=== PATIENT | female | born 1990 ===

== ENCOUNTER 2017-07-07 00:38 | Emergency (ER) | payer MEDICAID ==
[2017-07-07 01:09] VITALS: BMI 27.4
[2017-07-07] MEDS ORDERED: Lactated Ringer's 1,000 ML IV SCH (01:15)
--- NOTE | 2017-07-07 01:16 | OBHP ---
Datetime: 07/07/2017 01:14 IP Adm Impression: Term, intrauterine Admit Comment, IP Provider: at 38+weeks came with c/o started in evening, irrg, no vnb,lof+fm obhx 1 x c/s pmh de med pnv all nkda psh de soch de ve closed/th/-3 a/p at 38+weeks previous c/s/ctxs npo/ivf labs cont jermaine and efm cont close obsvation Pelvic Type - PN: Adequate Extremities - PN: Normal Abdomen - PN: Normal Back - PN: Normal Breast - PN: Normal Lungs - PN: Normal Heart - PN: Normal Thyroid - PN: Normal Neurologic - PN: Normal HEENT - PN: Normal General - PN: Normal FHR - Baseline A Provider: 150 Contraction Comments Provider: q1-5 EGA AdmitDate IP: 38.5 Vital Signs Provider: Reviewed; Within Normal Limits IP Chief Complaint: Uterine contractions NICHD Variability Prov Fetus A: Moderate 6-25bpm NICHD Accel Fetus A IP Provider: [id number] FHR Category Provider Fetus A: Category I Dilatation, Provider: 0 Effacement, Provider: 30 Station, Provider: -3 Genitourinary Exam: Normal DTRs - PN: Normal
[2017-07-07 01:48] LABS: HEMOGLOBIN 11.9 g/dL (11.0-16.0); MEAN CELL VOLUME 83.6 fL (81.0-99.0); MEAN CORPUSCULAR HEMOGLOBIN 28.2 pg (27.0-31.0); MEAN CORPUSCULAR HGB CONC 33.7 g/dL (33.0-37.0); RBC 4.24 Mil/uL (3.80-5.20); RED CELL DISTRIBUTION WIDTH 15.1 % (11.5-14.5); WHITE BLOOD COUNT 14.3 K/uL (4.8-10.8)
[2017-07-07 02:05] LABS: SQUAMOUS EPITHIAL 1 /hpf (0-5); URINE AMORPHOUS SEDIMENT MODERATE /ul (<OCC); URINE BILIRUBIN NEGATIVE (NEGATIVE); URINE BLOOD NEGATIVE (NEGATIVE); URINE GLUCOSE (UA) NORMAL (Normal); URINE LEUKOCYTE ESTERASE 1+ Leu/uL (Negative); URINE PROTEIN NEGATIVE (NEGATIVE); URINE UROBILINOGEN NORMAL mg/dL (0.2-1.0)
[2017-07-07 02:32] LABS: URINE CLARITY Turbid (Clear); URINE COLOR YELLOW (YELLOW)
--- NOTE | 2017-07-07 02:55 | OBHP ---
Datetime: 07/07/2017 02:52 Admit Comment, IP Provider: pt was examined a bed side feels better s/p terb x 1 ve closrdx 2 dc home labor given po hy f/u clinic on sunday FHR - Baseline A Provider: 130 Contraction Comments Provider: none Vital Signs Provider: Reviewed; Within Normal Limits NICHD Variability Prov Fetus A: Moderate 6-25bpm NICHD Accel Fetus A IP Provider: [id number] FHR Category Provider Fetus A: Category I Dilatation, Provider: 0 Effacement, Provider: 0 Datetime: 07/07/2017 01:14 EGA AdmitDate IP: 38.5
--- NOTE | 2017-07-07 02:55 | OBDCSUM ---
Datetime: 07/07/2017 02:53 Discharged to, Provider: Home Follow up at, Provider: 2days Follow up in weeks, Provider: clinic Discharge Comment, Provider: dc home labor given po hy f/u clinic on sunday Discharge Diagnosis Prov Other: 38 wee previous c/s ctxs
[2017-07-07 07:39] VITALS: BP 114/74; PULSE 79; RESP 18; TEMP 97; O2SAT 100
== END 2017-07-07 03:00 | disposition home or self-care (01) ==
LOC: C.EROB 00:38
DX: O47.1 False labor at or after 37 completed weeks of gestation (principal); Z3A.38 38 weeks gestation of pregnancy
CPT/HCPCS: 81001; 85027; 86850; 86900; 99283; J3105; J7120